=== PATIENT | female | born 1970 | race Caucasian/White ===

== ENCOUNTER 2021-05-12 14:33 | Emergency (ER) | payer OTHER ==
[~2021-05-12] VITALS: Ht 172.7 cm; Wt 71.0 kg
[~2021-05-12 14:33] MED LIST: DEXT25CA4 PO; HYDR1TAB10 PO
[2021-05-12] MEDS ORDERED: PHENAZOPYRIDINE 200 MG TABLET. PO ONE (15:45)
[2021-05-12] MEDS ORDERED: IBUPROFEN 600 MG TABLET. PO ONE (15:45)
--- NOTE | 2021-05-12 15:50 | PHYS DOC ---
Past History Past Medical History: Other Additional Past Medical Histor: Yeast Infection Past Surgical History: No Surgical History, Hysterectomy Smoking: Non-smoker Alcohol Use: Occasionally Drug Use: Marijuana General Adult EDM: Chief Complaint: PAIN ON URINATION HPI: HPI: 50-year-old female presenting with dysuria without discharge since last Thursday. Pain began on Thursday as a 3/10, non-radiating pain localized at the urethra but has progressively worsened and patient now presents with pain that is a 7/10. She began taking Macrobid 2 times a day starting on but that has not helped the symptoms. On she also started having a perivaginal rash that is described is "raw and red" but patient states this is not like the yeast infections she has had before. Denies recent travel, swimming in contaminated water, new sexual partners, has been using baby wipes because toilet paper has been too abrasive. Denies history of kidney stones or anything similar to this. States that the urethra does not feel obstructed but has noticed a change to her urinary stream. Urine appears normal and not cloudy or red to the patient. Denies F/C/N/V, constipation, diarrhea, headache, weakness, lethargy, back pain, flank pain, or vaginal discharge. Review of Systems: Review of Systems: Constitutional: Denies fever or chills Eyes: Denies redness or eye pain HENT: Denies nasal congestion or sore throat Respiratory: Denies cough or shortness of breath Cardiovascular: Denies chest pain or palpitations GI: Denies abdominal pain, nausea, or vomiting : Endorses dysuria and perivaginal rash Musculoskeletal: Denies back pain or joint pain Integument: Endorses red "raw" rash. Neurologic: Denies headache, focal weakness or sensory changes Complete systems were reviewed and found to be within normal limits, except as documented in this note. Current Medications: Current Meds: None Allergies: Allergies: Allergies Coded Allergies Type Severity Reaction Last Updated Verified No Known Drug Allergies 09/28/15 No Physical Exam: PE: Constitutional: Well developed, well nourished, uncomfortable but nontoxic appearance HENT: Normocephalic, atraumatic Eyes: Conjunctiva normal, no discharge Neck: Normal range of motion, supple Lungs & Thorax: No respiratory distress, equal chest rise and fall Abdomen: Soft, no tenderness, no guarding/rebound tenderness/distention Pelvic exam: Deferred by patient Skin: Warm, dry, no erythema, no rash Back: No tenderness, no CVA tenderness Extremities: No tenderness, ROM intact, no edema Neurologic: Alert and oriented X 3, no focal deficits noted Psychologic: Affect normal, judgment normal Current Patient Data: Vital Signs: Vital Signs Date Time Temp Pulse Resp B/P (MAP) Pulse Ox O2 Delivery O2 Flow Rate FiO2 05/12/21 14:40 97.7 96 18 146/98 (114) 99 Room Air EKG: EKG: [] Radiology/Procedures: Radiology/Procedures: [] Heart Score: C/O Chest Pain: N/A Course & Med Decision Making: Course & Med Decision Making Pertinent Lab studies reviewed. (See chart for details) Patient presents with HPI and physical exam concerning for acute UTI. Patient also reporting some rash to perivaginal area however reports possibly might be secondary to contact dermatitis from using wipes. Patient offered to have a pelvic exam performed which she declined and defers to her PCP/[facility]. UA with signs of infection. Empiric antibiotic initiated. Symptomatic treatment previously provided. Patient stable for discharge with outpatient follow-up with PCP/[facility]. Discussed findings and plan with patient, who acknowledges understanding and agreement. Nicole Disclaimer: Nicole Disclaimer: This electronic medical record was generated, in whole or in part, using a voice recognition dictation system. Departure Departure: Impression: Primary Impression: UTI (urinary tract infection) Qualified Codes: N30.00 - Acute cystitis without hematuria Disposition: HOME / SELF CARE / HOMELESS Condition: STABLE Referrals: SUKI RICCI MD (PCP) Patient Instructions: Urinary Tract Infection, [id number] Scripts Cephalexin (KEFLEX) 500 Mg Capsule 1 CAP PO TID for UTI for 7 Days, #21 CAP Prov: HILARY MORGAN DO 05/12/21 Phenazopyridine Hcl (PYRIDIUM) 200 Mg Tablet 200 MG PO Q8HRS for urinary tract infection for 2 Days, #6 TAB Prov: HILARY MORGAN DO 05/12/21 HILARY MORGAN DO May 12, 2021 15:50
[2021-05-12 16:03] LABS: CLARITY,URINE HAZY; COLOR,URINE YELLOW; GLUCOSE,URINE NEG (NEG)
[2021-05-12 16:04] LABS: BACTERIA,URINE FEW /HPF (0-FEW); NITRITE,URINE NEG (NEG); SQUAMOUS EPITHELIAL CELL,UR MOD /LPF; UROBILINOGEN,URINE 0.2 mg/dL (0.2 mg/dL)
[2021-05-12] MEDS ORDERED: PHEN-318 PO (16:09)
[2021-05-12] MEDS ORDERED: CEPH500C PO (16:09)
[2021-05-12] MEDS ORDERED: CEPHALEXIN 250 MG CAPSULE PO ONE (16:15)
[2021-05-12 16:34] VITALS: BP 146/80
== END 2021-05-12 16:34 | disposition home or self-care (01) ==
LOC: ER 14:33
DX: N30.00 Acute cystitis without hematuria (principal); Z90.710 Acquired absence of both cervix and uterus
CPT/HCPCS: 81001; 87086; 99284